=== PATIENT | male | born 1955 | race Caucasian/White ===

== ENCOUNTER 2019-11-01 18:58 | Emergency (ER) | payer OTHER, SELFPAY ==
[2019-11-01 19:13] VITALS: BP 149/84; PULSE 83; RESP 17; TEMP 37; O2SAT 96; BMI 28.5
--- NOTE | 2019-11-01 19:31 | XR_ITS ---
WS: [id number] XR hand LT min 3V* 09550 REASON FOR EXAM: dog bite FINDINGS: Degenerate changes of the first metacarpal carpal articulation. A small ossicle is seen adj acent to the distal aspects of the third phalanx this appears to be remote change is not needed. There is no definite fractures of the phalanges metacarpals or carpals. XR/XR hand LT min 3V* [id number] IMPRESSION: Degenerate changes of the first metacarpal carpal articulation.
--- NOTE | 2019-11-01 20:46 | W.ED.ANIMALB ---
HPI - Animal Bite General: Chief Complaint: Wound/Laceration Stated Complaint: dog bite Time Seen by Provider: 11/01/19 20:30 Source: patient Mode of arrival: ambulatory Limitations: no limitations History of Present Illness: HPI narrative: Patient is a 64-year-old male here for complaints of a dog bite to his left hand. Patient states he was pulling a tick off of his dog when the dog became irritated and bit his left hand. Dog is up-to-date on immunizations. Patient's tetanus is up-to-date. MD complaint: animal bite Onset (ago): hour(s) Animal: dog Description of animal: household pet, immunizations UTD and appeared well Mechanism: bite Location - Extremities: Left: hand Context: provoked Associated symptoms: Reports no associated symptoms Related Data: Patient tetanus UTD: Yes Review of Systems Skin/Breast: Reports: other (puncture gonzalez/bites to dorsum of L hand) Neuro: Denies: numbness in extremities, weakness in extremities or changes in sensation PFSH ED PFSH: Social History Smoking and tobacco status: current every day smoker Physical Exam Const: COMMON NORMALS: no apparent distress, average body habitus, oriented x3, no limitations, healthy appearing, alert and well nourished Extremity: OTHER: pt has two superficial bites/scratches to dorsum of L hand; he has one smaller 0.75 cm laceration/puncture tutu with some gapping so will go ahead and loosely close Neuro: COMMON NORMALS: oriented x3 SENSORIUM/ORIENTATION: Yes alert Procedures Laceration Laceration 1: Site: hand Side (If applicable): left Size (cm): 0.75 Description: stellate and flap Depth: simple, single layer Local Anesthetic: lidocaine 1% and with epi Amount of anesthesia used (mL): 0.5 Pre-repair: wound explored and irrigated extensively Skin layer closed with: nylon Size (cm): 5-0 Number of sutures: 2 Technique: simple, interrupted Course Vital Signs: Vital signs: Vital Signs Temperature 98.6 F 11/01/19 19:13 Pulse Rate 83 11/01/19 19:13 Respiratory Rate 17 11/01/19 19:13 Blood Pressure 149/84 11/01/19 19:13 Pulse Oximetry 96 11/01/19 19:13 Discharge Plan Discharge Patient Disposition: Home, Self-Care Clinical Impression: Dog bite of left hand Qualifiers: Encounter type: initial encounter Qualified Code(s): S61.452A - Open bite of left hand, initial encounter Condition: Stable Prescriptions: New Augmentin 875-125 mg tablet 1 tab PO Q12H 7 Days Qty: 14 RF: 0 No Action atorvastatin 10 mg Tablet 10 mg PO DAILY RF: 0 lisinopril 10 mg Tablet 10 mg PO DAILY RF: 0 Referrals: [facility] [Primary Care Provider] - Discharge Diet: Usual diet Discharge Activity: Resume usual activity Patient Instructions: Animal Bite (ED), Suture Care (ED) Activity Restrictions/Additional Instructions: Keep wounds clean with warm soap and water several times daily. Stitches can come out in 7 days. Begin antibiotics promptly. Return to the emergency department for worsening pain, swelling, redness, drainage, or any other concerns he may have. Coding Level of Care Code ED Product Development Specialist for Ric Tucker Exam Problem Focused
--- NOTE | 2019-11-01 21:09 | PC.NURSE ---
Introduced self to patient and initiated vital signs. Patient presents A&O x 4. NAD, ABCs intact, MAEW and agreeable to treatment. Respirations are even and unlabored. Pt states that the chief complaint for the ER visit today is due to a dog bite on left hand. Pt denies any vision disturbances or lightheadedness. Bed left in lowest position in semi-fowlers with side rails up.Reassured patient of needs and will continue to monitor.
[2019-11-01] MEDS: amoxicillin-clav 875-125 mg Tablet 1 TAB PO (21:10)
[2019-11-01 21:17] VITALS: BP 133/77; PULSE 86; RESP 16; TEMP 37; O2SAT 97
== END 2019-11-01 21:35 | disposition home or self-care (01) ==
PROVIDERS: Emergency Provider Physician Assistant
DX: S60.572A Other superficial bite of hand of left hand, initial encounter (principal); F17.200 Nicotine dependence, unspecified, uncomplicated; W54.0XXA Bitten by dog, initial encounter
CPT/HCPCS: 12001; 12345; 73130; 99281; 99283

== ENCOUNTER → 2019-11-15 08:28 | Outpatient (BNVA) | payer OTHER, SELFPAY | PROVIDERS: Referring Provider Nurse Practitioner; Visit Provider Urology | DX: R97.20 Elevated prostate specific antigen [PSA] (principal) | CPT/HCPCS: 81001 ==

== ENCOUNTER → 2020-05-28 14:39 | Outpatient (BNVA) | payer OTHER, SELFPAY | PROVIDERS: Visit Provider Urology | DX: R97.20 Elevated prostate specific antigen [PSA] (principal) | CPT/HCPCS: 81001; 84153 ==

== ENCOUNTER → 2020-10-15 10:44 | Outpatient (BNVA) | payer OTHER, SELFPAY | PROVIDERS: Visit Provider Surgery | DX: Z01.812 Encounter for preprocedural laboratory examination (principal) | CPT/HCPCS: 87635 ==

== ENCOUNTER 2020-10-22 09:08 | Day surgery (SDC) | payer OTHER, SELFPAY ==
[2020-10-21 11:21] VITALS: BMI 28.1
[2020-10-22 09:41] VITALS: BP 138/89; PULSE 68; RESP 18; TEMP 36.5; O2SAT 98
--- NOTE | 2020-10-22 09:46 | ANES.PREANE2 ---
Pre-Anesthetic Assessment Pre-Anesthetic Assessment: Height/Weight: Height 1.7 m Weight 81.647 kg Temp Pulse Resp BP Pulse Ox 97.7 F 68 18 138/89 98 10/22/20 09:41 10/22/20 09:41 10/22/20 09:41 10/22/20 09:41 10/22/20 09:41 Preop Diagnosis: screening colonoscopy Proposed Procedure: Operation Date: 10/22/20 10:30 Proposed Procedures p Colonoscopy 26676 z86.010(Not Applicable) - Darrell Gutierres MD Was Beta Ron taken within 24 hours: N/A Last intake: Intake Last Liquid Date 10/21/20 Last Solid Date 10/21/20 Last Solid Time 11:30 Social: Social History: No alcohol and No tobacco Exam: Pre-Anes Outpt Exam: alert, oriented x 3, clear to auscultation bilaterally and regular rate & rhythm Airway: Submandibular: WNL Cervical ROM: WNL MP: 2 CV/HEM: CV/HEM: HTN Anesthetic Plan: ASA status: 3 Anesthesia: MAC Risk of > 500 ml blood loss (7ml/kg in children): No PFSH Anesthesia PFSH: Medical History (Updated 10/11/20 @ 09:39 by Darrell Gutierres MD) HTN (hypertension) Hypercholesteremia Surgical History (Updated 10/11/20 @ 09:39 by Darrell Gutierres MD) H/O thumb surgery History of colonoscopy with polypectomy (2009) S/P shoulder surgery Family History Father , 80 Hypertension Hyperlipidemia Mother , 87 CAD (coronary artery disease) Social History Smoking and tobacco status: current every day smoker Alcohol intake: never Marital status: Current occupational status: retired History of recent travel: No Data Anesthesia Cardiac Studies: No Data to Display
[2020-10-22] MEDS: sodium chloride 0.9% 1,000 ML 30 ML IV (09:53)
--- NOTE | 2020-10-22 10:45 | W.PM.OPSUD ---
Surgery/Procedure H&P Update DATE OF PROCEDURE: October 22, 2020 DATE H&P PERFORMED: 10/11/20 H&P UPDATE INFORMATION: I have reviewed H&P completed within last 30 days, I have examined patient prior to procedure and No changes to prior documentation PREOP DIAGNOSIS: screening colonoscopy PLANNED PROCEDURE: Operation Date: 10/22/20 10:30 Proposed Procedures p Colonoscopy 30004 z86.010(Not Applicable) - Darrell Gutierres MD
[2020-10-22 11:09] VITALS: BP 128/78; PULSE 57; RESP 18; TEMP 36.2; O2SAT 97
[2020-10-22 11:19] VITALS: BP 128/92; PULSE 60; RESP 16; O2SAT 95
--- NOTE | 2020-10-22 12:07 | ANE.PACU2 ---
Inpatient post-anesthesia follow up: Airway intact: Yes Vital signs: Temperature 97.1 F Pulse Rate 60 Respiratory Rate 16 Blood Pressure 128/92 Pulse Oximetry 95 Oxygen Delivery Me thod Room Air Oxygen Flow Rate Fraction of Inspir ed Oxygen Hydration adequate: Yes Nausea and vomiting: No Pain level: 1 Mental status: Baseline
== END 2020-10-22 11:30 | disposition home or self-care (01) ==
PROVIDERS: Visit Provider Surgery
PROC: 0DJD8ZZ Inspection of Lower Intestinal Tract, Via Natural or Artificial Opening Endoscopic (ICD-10-PCS; CPT 45378; principal; 2020-10-22 10:30)
DX: K57.30 Diverticulosis of large intestine without perforation or abscess without bleeding (principal); D12.8 Benign neoplasm of rectum; I10 Essential (primary) hypertension; E78.00 Pure hypercholesterolemia, unspecified; Z79.82 Long term (current) use of aspirin; F17.210 Nicotine dependence, cigarettes, uncomplicated
CPT/HCPCS: 45378; 88305; J7030

== ENCOUNTER → 2020-12-19 08:35 | Outpatient (BNVA) | payer OTHER, SELFPAY | PROVIDERS: PCP Nurse Practitioner; Visit Provider Urology | DX: R97.20 Elevated prostate specific antigen [PSA] (principal) | CPT/HCPCS: 81003; 84153 ==

== ENCOUNTER 2021-01-08 08:29 | Emergency (ER) | payer OTHER, MEDICARE, SELFPAY ==
[2021-01-08 08:38] VITALS: BMI 27.9
--- NOTE | 2021-01-08 08:57 | ECG_ITS ---
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 Measurements Intervals [place] Rate: 63 P: 32 TN: 164 QRS: 0 QRSD: 89 T: 30 QT: 400 QTc: 410 Interpretive Statements SINUS RHYTHM WITH OCCASIONAL SUPRAVENTRICULAR PREMATURE COMPLEXES LOW QRS VOLTAGE IN PRECORDIAL LEADS [QRS DEFLECTION < 1.0 mV IN CHEST LEADS] No previous ECG available for comparison Electronically Signed On 01-08-2021 18:22:22 CDT by Audra Cope M.D. [id number] f
--- NOTE | 2021-01-08 08:57 | XR_ITS ---
WS: [id number] PORTABLE CHEST HISTORY: Acute onset chest pain. COMPARISON: None available. Lungs are clear and well expanded. No pleural effusion or pneumothorax. Cardiac size: Normal. Mediastinum/Aorta: Mild ectasia aorta. No widening. No osseous abnormality seen. XR/XR chest 1V portable 10231 IMPRESSION: Mildly ectatic thoracic aorta. Otherwise negative.
--- NOTE | 2021-01-08 09:23 | W.ED.CHESTPA ---
HPI - Chest Pain General: Chief Complaint: Chest Pain Stated Complaint: LIGHTHEADED, RIB PAIN, IRREGULAR HEARTBEAT Time Seen by Provider: 01/08/21 08:42 History of Present Illness: HPI narrative: 65-year-old male comes in stating he felt lightheaded, fuzzy and had chest pain. He appears to be in no acute distress. He points to his left lower chest as the location of the pain. He states this occurred approxi-1 hour ago. He states it did take his breath away. He has not had previous problems like this. He states the pain in his chest was more like an ache. He denies any history of heart disease, previous [place] or previous CVA. He denies any ear pain, runny nose or sore throat. He denies any shortness of breath or cough. He denies any fever or chills. He states he did feel somewhat nauseous with the lightheadedness. He denies any blurry or double vision. He denies any abdominal or flank pain. He denies any pain or burning with urination. No diarrhea or constipation. MD complaint: chest pain Onset (ago): hour(s) (1 hour) Prior episodes: No Onset: during rest Pain location: left chest Pain radiation: none Severity: mild Quality: aching Relieving factors: nothing Exacerbating factors: nothing Associated symptoms: Reports no associated symptoms; Deny abdominal pain, dyspnea, nausea, palpitations, syncope or vomiting Treatment prior to arrival: none Review of Systems General: Reports: 10 or more systems reviewed and unremarkable except in HPI and below ENMT: Denies: throat pain, odynophagia, ear or mastoid pain or nasal congestion Card: Reports: chest pain (Left lower chest) and lightheadedness; Denies: palpitations, irregular heart rhythm, edema, swelling of feet/ankles, syncope, pre-syncope, dyspnea on exertion, orthopnea or leg pain with exertion Resp: Denies: dyspnea, productive cough, non-productive cough or wheezing GI: Denies: abdominal pain, nausea or vomiting : Reports: dysuria; Denies: flank pain Neuro: Reports: other (Patient states he felt lightheaded and fuzzy in his head.) PFS ED PFSH: Medical History HTN (hypertension) Hypercholesteremia Surgical History H/O thumb surgery History of colonoscopy with polypectomy (10/22/20) 2009 S/P shoulder surgery Family History Father , 80 Hypertension Hyperlipidemia Mother , 87 CAD (coronary artery disease) Social History Smoking and tobacco status: current every day smoker Alcohol intake: never Marital status: Current occupational status: retired History of recent travel: No Physical Exam Narrative: EXAM NARRATIVE: 65-year-old male comes in with lightheadedness and chest pain. Const: COMMON NORMALS: patient oriented x3 and alert GENERAL APPEARANCE: well kempt; not lethargic ORIENTATION/CONSCIOUSNESS: Yes oriented to person, Yes oriented to place and Yes oriented to time; not lethargic HENMT: COMMON NORMALS: normocephalic, atraumatic and moist oral mucous membranes HEAD & SCALP: normocephalic and atraumatic Eye: COMMON NORMALS: Equal, round and reactive pupils present, EOMs intact bilaterally, conjunctivae normal and no scleral icterus GENERAL EYE: appearance normal, both eyes and all related structures and normal light reflex CONJUNCTIVA: Yes conjunctivae normal PUPIL: Yes Equal, round and reactive pupils present DIRECT OPHTHALMOSCOPY: Yes normal light reflex Neck/C-Spine: COMMON NORMALS: full ROM, no lymphadenopathy, supple, no meningeal signs and no JVD GENERAL: Yes normal visual inspection, Yes trachea midline, No anterior neck swelling and No lymphadenopathy Chest: COMMONS NORMALS: normal inspection of the chest and normal palpation of entire chest wall Resp: COMMON NORMALS: normal respiratory effort, No retractions, No use of accessory muscles and clear to auscultation bilaterally EFFORT & INSPECTION: Yes able to speak in complete sentences, Yes symmetric chest movement, No labored, No grunting, No stridor, No Actively coughing, No retractions and No uses accessory muscles AUSCULTATION: clear to auscultation bilaterally, no crackles, no rales, no rhonchi and no wheezes Cardio: COMMON NORMALS: no JVD, regular rate, regular rhythm, No gallops present (Cardio), No clicks present (Cardio), No murmurs present (Cardio), No rub (Cardio) and Peripheral pulses 2+ throughout RATE: regular rate RHYTHM: regular rhythm PERIPHERAL PULSES: Peripheral pulses 2+ throughout GI: COMMON NORMALS: Normal to inspection, nondistended, normoactive bowel sounds present, Soft to palpation, non-tender, No hepatosplenomegaly present, no masses and no bruits PALPATION: Yes Soft to palpation and Yes No hepatosplenomegaly present : COMMON NORMALS: Yes no CVA tenderness BLADDER/KIDNEY EXAM: Yes no CVA tenderness Back/Pelvis: COMMON NORMALS: no CVA tenderness and thoracic and lumbar spine normal to inspection Extremity: COMMON NORMALS: normal to inspection, full ROM, capillary refill normal, no joint enlargement, no clubbing, cyanosis or edema, no calf tenderness and no pedal edema Neuro: COMMON NORMALS: patient oriented x3, CN's II-XII intact bilaterally, moves all extremities, no focal motor deficits and no sensory deficits noted SENSORIUM/ORIENTATION: Yes alert, Yes oriented to person, Yes oriented to place, Yes oriented to time, No lethargic, No somnolent, No obtunded and No stuporous MENINGEAL SIGNS: Yes no meningeal signs Psych: COMMON NORMALS: mental status grossly normal, Normal thought process present, cooperative, normal affect, speech normal and activity/motor behavior normal APPEARANCE: Yes grossly normal and Yes well kempt ATTITUDE: Yes calm and Yes engaged ACTIVITY/MOTOR BEHAVIOR: Yes appropriate eye contact SPEECH: Yes normal speech THOUGHT PROCESS: Normal thought process present MDM - Chest Pain Lab Data: Labs: Lab Results 01/08/21 01/08/21 01/08/21 Range/Units 09:15 09:15 09:15 WBC 6.1 (4.0-10.0) 10^3/ uL RBC 4.88 (4.1-5.3) 10^6/u L Hgb 14.6 (11.7-16.6) g/dL Hct 43.9 (42.0-52.0) % MCV 90.0 (80-94) fL MCH 29.9 (28.0-34.0) pg MCHC 33.3 (30.0-36.0) g/dL RDW 12.8 (12.1-15.1) % Plt Count 230 (130-400) 10^3/c mm MPV 11.9 H (7.4-10.4) fL Neut % (Auto) 57.9 % Lymph % (Auto) 31.4 % [place] % (Auto) 7.6 % Eos % (Auto) 2.1 % Baso % (Auto) 0.7 % Neut # (Auto) 3.51 (1.8-7.7) 10^3/u L Lymph # (Auto) 1.9 (0.8-4.8) 10^3/u L [place] # (Auto) 0.5 (0.2-0.9) 10^3/u L Eos # (Auto) 0.1 (0.0-0.8) 10^3/u L Baso # (Auto) 0.0 (0.0-0.1) 10^3/u L Nucleated RBC % (a uto) 0 % Nucleated RBCs # 0.0 /100WBC Sodium 136 (136-145) mmol/L Potassium 4.6 (3.5-5.1) mmol/L Chloride 101 (98-107) mmol/L Carbon Dioxide 25 (22-29) mmol/L Anion Gap 14.6 (5-19) BUN 10 (8-23) mg/dL Creatinine 0.7 (0.7-1.2) mg/dL GFR Calculation 112.5 (90-130) mL/min Glucose 107 (65-115) mg/dL Calculated Osmolal ity 282 L (285-295) mOsm/k g Calcium 9.3 (8.5-10.5) mg/dL Total Bilirubin 0.3 (0.15-1.2) mg/dL AST 17 (0-40) U/L ALT 16 (0-41) U/L Alkaline Phosphata se 93 (40-130) IU/L Troponin T Baselin e 8 (0-15) ng/L Troponin T 120 Min nikolski (0-15) ng/L Delta Troponin T (0-10) ABS# NT-Pro-B Natriuret Pep 56 (0-125) pg/mL Total Protein 7.0 (6.6-8.7) g/dL Albumin 4.6 (3.5-5.2) g/dL Globulin 2.4 (1.3-4.6) g/dL 01/08/21 Range/Units 11:41 WBC (4.0-10.0) 10^3/ uL RBC (4.1-5.3) 10^6/u L Hgb (11.7-16.6) g/dL Hct (42.0-52.0) % MCV (80-94) fL MCH (28.0-34.0) pg MCHC (30.0-36.0) g/dL RDW (12.1-15.1) % Plt Count (130-400) 10^3/c mm MPV (7.4-10.4) fL Neut % (Auto) % Lymph % (Auto) % [place] % (Auto) % Eos % (Auto) % Baso % (Auto) % Neut # (Auto) (1.8-7.7) 10^3/u L Lymph # (Auto) (0.8-4.8) 10^3/u L [place] # (Auto) (0.2-0.9) 10^3/u L Eos # (Auto) (0.0-0.8) 10^3/u L Baso # (Auto) (0.0-0.1) 10^3/u L Nucleated RBC % (a uto) % Nucleated RBCs # /100WBC Sodium (136-145) mmol/L Potassium (3.5-5.1) mmol/L Chloride (98-107) mmol/L Carbon Dioxide (22-29) mmol/L Anion Gap (5-19) BUN (8-23) mg/dL Creatinine (0.7-1.2) mg/dL GFR Calculation (90-130) mL/min Glucose (65-115) mg/dL Calculated Osmolal ity (285-295) mOsm/k g Calcium (8.5-10.5) mg/dL Total Bilirubin (0.15-1.2) mg/dL AST (0-40) U/L ALT (0-41) U/L Alkaline Phosphata se (40-130) IU/L Troponin T Baselin e (0-15) ng/L Troponin T 120 Min nikolski 6.00 (0-15) ng/L Delta Troponin T -2.00 L (0-10) ABS# NT-Pro-B Natriuret Pep (0-125) pg/mL Total Protein (6.6-8.7) g/dL Albumin (3.5-5.2) g/dL Globulin (1.3-4.6) g/dL Discharge Plan Discharge Patient Disposition: Home Clinical Impression: Atypical chest pain, Light-headed, Bradycardia Condition: Stable Prescriptions: No Action aspirin 81 mg tablet,delayed release (DR/EC) 81 mg PO DAILY RF: 0 atorvastatin 10 mg Tablet 10 mg PO QPM RF: 0 lisinopril 10 mg Tablet 10 mg PO DAILY RF: 0 saw palmetto 80 mg Capsule 320 mg PO DAILY RF: 0 ascorbic acid (vitamin C) [Vitamin C] 250 mg Tablet 250 mg PO DAILY RF: 0 zinc 50 mg Capsule 50 mg PO DAILY RF: 0 Discharge Orders: Discharge ED (Routine); Ordered 01/08/21 Ordered By: Wilder Vanegas Referrals: Araceli Garber FNP [Primary Care Provider] - Discharge Diet: Advance as tolerated Discharge Activity: Increase activity as tolerated Patient Instructions: Opioid Safety Activity Restrictions/Additional Instructions: Continue current medications. Follow-up with your primary care provider. Please wear Vince/support hose. Follow-up with cardiology as directed by your primary care provider. Coding Level of Care Code ED Prenatal Nurse for Giovannig Fwd Exam Comprehensive
[2021-01-08 09:27] LABS: Basophils % 0.7 %; Eosinophils # 0.1 10^3/uL (0.0-0.8); Eosinophils % 2.1 %; Hematocrit 43.9 % (42.0-52.0); Hemoglobin 14.6 g/dL (11.7-16.6); Lymphocytes # 1.9 10^3/uL (0.8-4.8); Lymphocytes % 31.4 %; Mean Corpuscular HGB Conc 33.3 g/dL (30.0-36.0); Mean Corpuscular Hemoglobin 29.9 pg (28.0-34.0); Mean Platelet Volume 11.9 fL (7.4-10.4); Monocytes # 0.5 10^3/uL (0.2-0.9); Monocytes % 7.6 %; Neutrophils # 3.51 10^3/uL (1.8-7.7); Neutrophils % 57.9 %; Nucleated Red Blood Cells % 0 %; Platelet Count 230 10^3/cmm (130-400); Red Blood Count 4.88 10^6/uL (4.1-5.3); Red Cell Distribution Width 12.8 % (12.1-15.1); White Blood Count 6.1 10^3/uL (4.0-10.0)
[2021-01-08 09:46] LABS: Troponin(5th) Baseline 8 ng/L (0-15)
[2021-01-08 09:51] LABS: Alanine Aminotransferase 16 U/L (0-41); Albumin Level 4.6 g/dL (3.5-5.2); Alkaline Phosphatase 93 IU/L (40-130); Anion Gap 14.6 (5-19); Aspartate Amino Transferase 17 U/L (0-40); Blood Urea Nitrogen 10 mg/dL (8-23); Calcium 9.3 mg/dL (8.5-10.5); Carbon Dioxide 25 mmol/L (22-29); Chloride 101 mmol/L (98-107); Globulin 2.4 g/dL (1.3-4.6); Glomerular Filtration Rate 112.5 mL/min (90-130); Glucose 107 mg/dL (65-115); NT Pro B Type Natriuretic Pept 56 pg/mL (0-125); Osmolality Calculated 282 mOsm/kg (285-295); Potassium 4.6 mmol/L (3.5-5.1); Sodium 136 mmol/L (136-145); Total Bilirubin 0.3 mg/dL (0.15-1.2)
--- NOTE | 2021-01-08 10:57 | ECG_ITS ---
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 Measurements Intervals [place] Rate: 62 P: 21 [place]: 167 QRS: -4 QRSD: 87 T: 24 QT: 420 QTc: 428 Interpretive Statements SINUS RHYTHM WITH OCCASIONAL ECTOPIC PREMATURE COMPLEXES Compared to ECG 01/08/2021 08:48:20 No significant changes Electronically Signed On 01-08-2021 18:26:49 CDT by Audra Cope M.D. [id number]
[2021-01-08 12:45] VITALS: BP 139/74; PULSE 70; RESP 18; O2SAT 96
== END 2021-01-08 12:46 | disposition home or self-care (01) ==
PROVIDERS: Emergency Provider Emergency Medicine; PCP Nurse Practitioner
DX: R07.89 Other chest pain (principal); R42 Dizziness and giddiness; R00.1 Bradycardia, unspecified; Z79.82 Long term (current) use of aspirin; I10 Essential (primary) hypertension; F17.210 Nicotine dependence, cigarettes, uncomplicated
CPT/HCPCS: 71045; 80053; 83880; 84484; 85025; 93005; 99283

== ENCOUNTER → 2021-06-02 10:57 | Outpatient (BNVA) | payer OTHER, MEDICARE, SELFPAY | PROVIDERS: PCP Nurse Practitioner; Referring Provider Nurse Practitioner; Visit Provider Specialist | DX: M25.511 Pain in right shoulder (principal) | CPT/HCPCS: 73030 ==

== ENCOUNTER 2021-06-06 09:30 | Outpatient (RCR) | payer OTHER, SELFPAY | END 2021-06-13 16:00 | disposition home or self-care (01) | LOC: SPT 09:30 | PROVIDERS: PCP Nurse Practitioner; Visit Provider Specialist | DX: M25.511 Pain in right shoulder (principal) | CPT/HCPCS: 97110; 97162; 97164 ==

== ENCOUNTER → 2021-06-17 08:48 | Outpatient (BNVA) | payer OTHER, SELFPAY | PROVIDERS: PCP Nurse Practitioner; Visit Provider Urology | DX: R97.20 Elevated prostate specific antigen [PSA] (principal) | CPT/HCPCS: 81003 ==

== ENCOUNTER → 2021-12-16 09:19 | Outpatient (BNVA) | payer OTHER, SELFPAY | PROVIDERS: PCP Nurse Practitioner; Visit Provider Urology | DX: R97.20 Elevated prostate specific antigen [PSA] (principal) | CPT/HCPCS: 81003; 84153 ==

== ENCOUNTER 2022-06-27 13:47 | Emergency (ER) | payer OTHER, SELFPAY ==
[2022-06-27 14:00] VITALS: BP 161/90; PULSE 73; RESP 16; TEMP 36.8; O2SAT 97; BMI 28.7
--- NOTE | 2022-06-27 14:52 | W.ED.ANIMALB ---
HPI - Animal Bite General: Chief Complaint: Animal Bite Stated Complaint: Tick Bite Time Seen by Provider: 06/27/22 14:42 History of Present Illness: Patient is a 66-year-old male comes to the ED with a tick bite. Tick bite was found on his left lower quadrant of his abdomen. He removed the whole tick about an hour before arriving to the ED. Has some redness and tenderness around tick bite area. Denies any other symptoms. Denies fever, chills, body aches, muscle pains, nausea/vomiting, shortness of breath or chest pain. Associated symptoms: Deny chills, fever(s) or headache(s) Review of Systems Const: Denies: fever(s), chills or fatigue Eyes: Denies: change in vision or eye discomfort ENMT: Denies: throat pain, odynophagia, nasal discharge or nasal congestion Card: Denies: chest pain, palpitations, edema, swelling of feet/ankles, dyspnea on exertion or orthopnea Resp: Denies: dyspnea, productive cough or non-productive cough GI: Denies: abdominal pain, nausea, vomiting, diarrhea, constipation or hematochezia : Denies: flank pain, difficulty urinating, dysuria or hematuria Musc: Denies: neck pain, back pain or extremity swelling Skin/Breast: Reports: new lesions (Tick bite on abdomen); Denies: rash Neuro: Denies: headache(s), numbness in extremities or weakness in extremities [facility] ED PFSH: Medical History History of nonmelanoma skin cancer HTN (hypertension) Hypercholesteremia Surgical History H/O thumb surgery History of colonoscopy with polypectomy (10/22/20) 2009 S/P shoulder surgery Family History Father , 80 Hypertension Hyperlipidemia Mother , 87 CAD (coronary artery disease) Social History Smoking and tobacco status: current every day smoker Alcohol intake: never Marital status: Current occupational status: retired History of recent travel: No Physical Exam Const: COMMON NORMALS: no acute distress, patient oriented x3, healthy appearing and alert GENERAL APPEARANCE: cooperative and comfortable HENMT: COMMON NORMALS: normocephalic HEAD & SCALP: normocephalic MOUTH: Normal oral and palatal mucosa present THROAT: posterior oropharynx normal and uvula midline Neck/C-Spine: COMMON NORMALS: supple GENERAL: Yes normal visual inspection Resp: COMMON NORMALS: normal respiratory effort, No retractions, No use of accessory muscles and clear to auscultation bilaterally AUSCULTATION: clear to auscultation bilaterally Cardio: COMMON NORMALS: regular rate, regular rhythm, S1 normal heart sound present, S2 normal heart sound present, No gallops present (Cardio), No clicks present (Cardio), No murmurs present (Cardio) and Peripheral pulses 2+ throughout RATE: regular rate RHYTHM: regular rhythm HEART SOUNDS: S1 normal heart sound present and S2 normal heart sound present PERIPHERAL PULSES: Peripheral pulses 2+ throughout GI: COMMON NORMALS: Normal to inspection, nondistended, normoactive bowel sounds present, Soft to palpation, non-tender and no masses PALPATION: Yes Soft to palpation : COMMON NORMALS: Yes no CVA tenderness BLADDER/KIDNEY EXAM: Yes no CVA tenderness Back/Pelvis: COMMON NORMALS: no CVA tenderness Neuro: COMMON NORMALS: patient oriented x3 SENSORIUM/ORIENTATION: Yes alert GAIT: Yes Normal gait present Skin: NARRATIVE SKIN EXAM: Tick bite on left lower quadrant of abdomen. Surrounding erythema and tenderness. No erythema migrans rash noted. GENERAL SKIN EXAM: dry skin Course Vital Signs: Vital signs: Vital Signs Temperature 98.0 F 06/27/22 15:17 Pulse Rate 66 06/27/22 15:17 Respiratory Rate 15 06/27/22 15:17 Blood Pressure 146/91 06/27/22 15:17 Pulse Oximetry 98 06/27/22 15:17 Oxygen Delivery Me thod 06/27/22 14:00 MDM - Animal Bite Medical Decision Making Patient is a 66-year-old male comes to the ED with a tick bite on left lower quadrant of abdomen. Denies any other symptoms. he has some surrounding erythema and tenderness but no erythema migrans rash noted. Vitals are stable. Tick lab panel is pending. He was diagnosed with tick bite of abdomen and discharged home on doxycycline. Told to follow-up with his PCP within the next week for reevaluation. Patient understood and agreed with plan. Discharge Plan Discharge Patient Disposition: Home Clinical Impression: Tick bite of abdomen Qualifiers: Encounter type: initial encounter Qualified Code(s): S30.861A - Insect bite (nonvenomous) of abdominal wall, initial encounter Condition: Stable Prescriptions: New doxycycline hyclate 100 mg capsule 100 mg PO BID 10 Days Qty: 20 0RF No Action atorvastatin 10 mg Tablet 10 mg PO QPM lisinopril 10 mg Tablet 10 mg PO DAILY saw palmetto 80 mg Capsule 320 mg PO DAILY ascorbic acid (vitamin C) [Vitamin C] 250 mg Tablet 250 mg PO DAILY Discharge Orders: Discharge ED (Routine); Ordered 06/27/22 Ordered By: Santos Rowland Referrals: Araceli Garber FNP [Primary Care Provider] - Discharge Diet: Regular Discharge Activity: Increase activity as tolerated Patient Instructions: Tick Bite (ED) Activity Restrictions/Additional Instructions: Follow-up with medical provider as directed in the next 7 to 10 days for reevaluation. Take medications as prescribed. Tick panel is pending and results should be back within the next couple days. You can [facility] in the next couple days to find out tick panel lab results. Return to the ER or your medical provider if condition worsens. Please read and understand discharge instructions. Thank you for choosing [facility] for your healthcare needs today. Please realize this is an emergency room and that we are providing you with a medical screening exam and this may not be complete and all inclusive of all the testing and or work up that you may need to determine your ailment or severity of your illness. It is very important that you follow up as instructed or that you return to the Emergency Department should you have concerns or if your condition changes or worsens in any way. Coding Level of Care Code ED Psych Sales Specialist for Ric Tucker Exam Comprehensive
[2022-06-27 15:17] VITALS: BP 146/91; PULSE 66; RESP 15; TEMP 36.7; O2SAT 98
[2022-06-29 13:52] LABS: Lyme AB Screen <0.90 index
[2022-07-02 17:02] LABS: E. Chaffeensis AB IGG <1:64; E. Chaffeensis AB IGM <1:20
[2022-07-03 16:16] LABS: RMSF IGG DETECTED; RMSF IGM NOT DETECTED
== END 2022-06-27 15:19 | disposition home or self-care (01) ==
PROVIDERS: Emergency Provider Physician Assistant; PCP Nurse Practitioner
DX: S30.861A Insect bite (nonvenomous) of abdominal wall, initial encounter (principal); W57.XXXA Bitten or stung by nonvenomous insect and other nonvenomous arthropods, initial encounter; I10 Essential (primary) hypertension; F17.210 Nicotine dependence, cigarettes, uncomplicated
CPT/HCPCS: 36415; 86618; 86666; 86757; 99283

== ENCOUNTER 2022-06-30 07:38 | Outpatient (CLI) | payer OTHER, MEDICARE, SELFPAY ==
[2022-06-30 08:42] LABS: Prostate Specific AG Urology 4.12 ng/mL (0-4)
== END 2022-06-30 07:39 | disposition home or self-care (01) ==
LOC: LAB 07:44
PROVIDERS: PCP Nurse Practitioner; Visit Provider Urology
DX: R97.20 Elevated prostate specific antigen [PSA] (principal)
CPT/HCPCS: 36415; 81003; 84153

== ENCOUNTER → 2023-01-28 08:23 | Outpatient (BNVA) | payer OTHER, SELFPAY | PROVIDERS: PCP Nurse Practitioner; Visit Provider Nurse Practitioner Family | DX: L57.8 Other skin changes due to chronic exposure to nonionizing radiation (principal); L57.0 Actinic keratosis; L81.7 Pigmented purpuric dermatosis; L85.3 Xerosis cutis; Z85.828 Personal history of other malignant neoplasm of skin; Z72.0 Tobacco use | CPT/HCPCS: 17000; 17003; 99213 ==

== ENCOUNTER → 2023-03-16 11:09 | Outpatient (BNVA) | payer OTHER, SELFPAY | PROVIDERS: PCP Nurse Practitioner; Visit Provider Internal Medicine Pulmonary Disease | DX: R91.8 Other nonspecific abnormal finding of lung field (principal); J44.9 Chronic obstructive pulmonary disease, unspecified; F17.210 Nicotine dependence, cigarettes, uncomplicated | CPT/HCPCS: 99204 ==

== ENCOUNTER 2023-03-30 06:54 | Outpatient (CLI) | payer OTHER, SELFPAY ==
--- NOTE | 2023-03-30 07:18 | CT_ITS ---
WS: [id number] CT chest wo con [id number] HISTORY: cancer screening lung nodule TECHNIQUE: Axial imaging performed through the thorax. Coronal and sagittal reformats are submitted. All CT scans at [facility] use at least one of these dose optimization techniques: automated exposure control; mA and/or kV adjustment per patient size (includes targeted exams where dose is mat ched to clinical indication); or iterative reconstruction. CONTRAST: None DLP: 312.23 mGy.cm COMPARISON: 05/08/2022, 11/06/2022 Lungs and central airway: Hyperexpanded lungs. There are 2 nodules are reidentified in the RIGHT thor ax. Both these nodules are along the fissure which are typically benign. Largest nodule is 3.5 mm. No increase in size since 05/08/2022. Pleura: Normal. No pleural effusion. Heart and pericardium: Normal size heart with no pericardial effusion. Moderate coronary artery ather osclerosis. Mediastinum and raissa: No mediastinum or hilar adenopathy. Vessels: Mild atherosclerosis aorta. Normal size pulmonary artery. Chest wall and lower neck: No soft tissue masses. Upper abdomen: Moderate-sized hiatal hernia. Splenic granulomata. Osseous structures: Moderate degenerative spondylitic changes thoracic spine CT/CT chest wo con [id number] IMPRESSION: 1. Small right-sided perifissural nodule's. These are typically benign. No inc rease in size since 05/08/2022. Recommend return to annual screening lung CT. 2. Chronic emphysema. 3. Moderate coronary artery atherosclerotic disease.
== END 2023-03-30 06:55 | disposition home or self-care (01) ==
PROVIDERS: PCP Nurse Practitioner; Visit Provider Internal Medicine Pulmonary Disease
DX: R91.1 Solitary pulmonary nodule (principal); J43.8 Other emphysema; I25.10 Atherosclerotic heart disease of native coronary artery without angina pectoris
CPT/HCPCS: 71250

== ENCOUNTER 2023-05-17 08:30 | Outpatient (CLI) | payer OTHER, SELFPAY ==
--- NOTE | 2023-05-17 08:39 | USCV_ITS ---
Lewis Hernandez Age: 67 Gender: M : 1955 Exam Date: 05/17/2023 08:49 Ordering Phys: Araceli Garber Technologist: MARSHA Exam Location: [facility] [place] Indication: AAA Screening HISTORY: Diameter (cm) AP x Transverse x Length Velocity (cm/s) Waveform Prox Aorta: 1.96 x 2.07 x 52.50 Triphasic Mid Aorta: 1.52 x 1.69 x 62.70 Triphasic Distal Aorta: 1.60 x 1.87 x 54.90 Triphasic Right Iliac Prox: 0.79 x 1.20 x 68.60 Triphasic Left Iliac Prox: 0.77 x 1.02 x 83.00 Triphasic Stent Prox Landing x x Aneurysmal Sac Max x x Lt Lat Sac Dim Rt Lat Sac Dim Stent Dist Landing x x Right Iliac Stent x x Left Iliac Stent x x Right Renal Art Left Renal Art FINDINGS: CONCLUSIONS No evidence of abdominal aortic or bilateral iliac aneurysm. Mild aortic atheromatous disease Emmanuel Crocker MD (Electronically Signed) Final Date: 17 May 2023 15:00 S
== END 2023-05-17 08:31 | disposition home or self-care (01) ==
PROVIDERS: PCP Nurse Practitioner; Visit Provider Nurse Practitioner
DX: Z13.6 Encounter for screening for cardiovascular disorders (principal); I70.0 Atherosclerosis of aorta
CPT/HCPCS: 76706

== ENCOUNTER → 2023-06-24 10:53 | Outpatient (BNVA) | payer OTHER, SELFPAY | PROVIDERS: PCP Nurse Practitioner; Referring Provider Nurse Practitioner; Visit Provider Dermatology | DX: Z08 Encounter for follow-up examination after completed treatment for malignant neoplasm (principal); Z85.828 Personal history of other malignant neoplasm of skin; L82.1 Other seborrheic keratosis; L57.0 Actinic keratosis; L73.8 Other specified follicular disorders | CPT/HCPCS: 17000; 99213 ==

== ENCOUNTER → 2023-09-02 08:43 | Outpatient (BNVA) | payer OTHER, SELFPAY | PROVIDERS: PCP Nurse Practitioner; Visit Provider Internal Medicine Pulmonary Disease | DX: J44.9 Chronic obstructive pulmonary disease, unspecified (principal); F17.210 Nicotine dependence, cigarettes, uncomplicated; R91.8 Other nonspecific abnormal finding of lung field; R06.02 Shortness of breath | CPT/HCPCS: 99214 ==

== ENCOUNTER 2023-09-28 07:48 | Outpatient (CLI) | payer OTHER, SELFPAY ==
[2023-09-28 08:19] VITALS: PULSE 76; RESP 18; O2SAT 97
[2023-09-28] MEDS: albuterol 2.5 mg/3 mL Neb INHALATION (08:19)
[2023-09-28 08:24] VITALS: PULSE 82
== END 2023-09-28 07:49 | disposition home or self-care (01) ==
LOC: RT 07:49
PROVIDERS: PCP Nurse Practitioner; Visit Provider Internal Medicine Pulmonary Disease
DX: J44.9 Chronic obstructive pulmonary disease, unspecified (principal); Z72.0 Tobacco use; R94.2 Abnormal results of pulmonary function studies
CPT/HCPCS: 94060; 94618; 94726; 94729; J7613

== ENCOUNTER → 2023-12-02 08:22 | Outpatient (BNVA) | payer OTHER, SELFPAY | PROVIDERS: PCP Nurse Practitioner; Visit Provider Internal Medicine Pulmonary Disease | DX: J44.9 Chronic obstructive pulmonary disease, unspecified (principal); R91.8 Other nonspecific abnormal finding of lung field; F17.210 Nicotine dependence, cigarettes, uncomplicated | CPT/HCPCS: 99214 ==

== ENCOUNTER → 2024-01-21 09:53 | Outpatient (BNVA) | payer OTHER, SELFPAY | PROVIDERS: PCP Nurse Practitioner; Visit Provider Nurse Practitioner Family | DX: L57.0 Actinic keratosis (principal); L82.0 Inflamed seborrheic keratosis; L60.8 Other nail disorders; D22.5 Melanocytic nevi of trunk; L81.4 Other melanin hyperpigmentation; Z85.828 Personal history of other malignant neoplasm of skin | CPT/HCPCS: 17000; 17110; 99213 ==

== ENCOUNTER 2024-07-04 08:34 | Outpatient (CLI) | payer MEDICARE, OTHER, SELFPAY | END 2024-07-04 08:35 | disposition home or self-care (01) | LOC: LAB 08:36 | PROVIDERS: PCP Nurse Practitioner; Visit Provider Nurse Practitioner Family | DX: R97.20 Elevated prostate specific antigen [PSA] (principal) | CPT/HCPCS: 84153 ==

== ENCOUNTER 2024-09-17 12:55 | Emergency (ER) | payer OTHER, SELFPAY ==
--- NOTE | 2024-09-17 12:57 | XRR_ITS ---
PROCEDURE INFORMATION: Exam: XR Chest Exam date and time: 09/17/2024 1:17 PM Age: 69 years old Clinical indication: Chest pressure; Patient HX: Chest pain TECHNIQUE: Imaging protocol: Radiologic exam of the chest. Views: 1 view. COMPARISON: CT chest con [id number] 03/30/2023 7:25 AM FINDINGS: Lungs: No focal lung consolidation. Pleural spaces: No pleural effusion. No pneumothorax. Heart/Mediastinum: No cardiomegaly. Bones/joints: No acute bony abnormality. XR/XR chest 1V portable [id number] IMPRESSION: No focal lung consolidation.
--- NOTE | 2024-09-17 12:58 | ECG_ITS ---
[facility] Date: 2024-09-17 Pat Name: Lewis Hernandez Department: Room: Gender: Male Media Aid: : 1955 Requested By: Matthew Jensen Order Number: [id number] Reading MD: GREGORIA PAZ Measurements Intervals [place] Rate: 63 P: 47 DC: 158 QRS: 18 QRSD: 88 T: 55 QT: 381 QTc: 392 Interpretive Statements SINUS RHYTHM Compared to ECG 01/08/2021 11:30:52 No significant changes Electronically Signed On 09-18-2024 23:13:41 SOCIOLOGY TEACHER by GREGORIA PAZ [id number]
[2024-09-17 13:04] VITALS: BP 142/75; PULSE 85; RESP 16; TEMP 36.7; O2SAT 98
--- NOTE | 2024-09-17 13:12 | ED_ITS ---
HPI - Chest Pain 2 General: Chief Complaint: Chest Pain Stated Complaint: chest pain Time Seen by Provider: 09/17/24 13:08 Source: patient Mode of arrival: ambulatory Limitations: no limitations History of Present Illness: 69-year-old male states he was watching TV roughly an hour ago and started having some chest pain states it has been a mild pain he denies any nausea denies any shortness of breath he denies any worse improving factors. States he is currently pain-free at this time. He denies any abdominal pain denies any cough or fever Associated symptoms: Deny abdominal pain, dyspnea, fever(s), nausea or vomiting Related Data Home Medications Medication Instructions Recorded Confirmed multivitamin 1 tab PO DAILY 03/16/23 09/17/24 albuterol sulfate 90 mcg/actuation 2 inh inhalation Q8H PRN shortness 09/17/24 09/17/24 aerosol inhaler of breath or wheezing atorvastatin 20 mg tablet 20 mg PO DAILY 09/17/24 09/17/24 lisinopril 20 mg tablet 20 mg PO DAILY 09/17/24 09/17/24 Previous Rx's Medication Instructions Recorded tiotropium 2.5 mcg-olodaterol 2.5 2 puff inhalation DAILY #4 grams 12/02/23 mcg/actuation mist for inhalation Allergies Allergy/AdvReac Type Severity Reaction Status Date / Time oxycodone [From Percocet] Allergy ALGY-Rash Verified 09/17/24 13:06 Review of Systems 2 Const: Denies: fever(s), chills, body aches or change in appetite ENMT: Denies: throat pain or dental pain Card: Reports: chest pain Resp: Denies: dyspnea GI: Denies: abdominal pain, nausea, vomiting or diarrhea Musc: Denies: neck pain or back pain Skin/Breast: Denies: rash Neuro: Denies: headache(s) Esteban/Lymph: Denies: easy bruising PFSH ED 2 PFSH: Medical History History of nonmelanoma skin cancer Hypercholesteremia HTN (hypertension) Surgical History History of colonoscopy with polypectomy (10/22/20) 2009 H/O thumb surgery S/P shoulder surgery Family History Father , 80 Hypertension Hyperlipidemia Mother , 87 CAD (coronary artery disease) Social History Smoking and tobacco/nicotine status: current every day tobacco/nicotine user cigarettes Packs smoked per day: 0.5 Years cigarettes smoked: 51 [ Other cigarette details: started at age 16] Alcohol intake: never Substance/Drug Use: never Marital status: Current occupational status: retired Physical Exam 2 Const: COMMON NORMALS: no acute distress, patient oriented x3 and healthy appearing HENMT: COMMON NORMALS: normocephalic and atraumatic HEAD & SCALP: n ormocephalic and atraumatic Eye: COMMON NORMALS: conjunctivae normal CONJUNCTIVA: Yes conjunctivae normal Neck/C-Spine: COMMON NORMALS: full ROM and supple Chest: COMMONS NORMALS: normal inspection of the chest and normal palpation of entire chest wall Resp: COMMON NORMALS: normal respiratory effort, No retractions, No use of accessory muscles and clear to auscultation bilaterally AUSCULTATION: clear to auscultation bilaterally Cardio: COMMON NORMALS: regular rate, regular rhythm and No murmurs present (Cardio) RATE: regular rate RHYTHM: regular rhythm GI: COMMON NORMALS: Normal to inspection, nondistended, normoactive bowel sounds present, Soft to palpation, non-tender and no masses PALPATION: Yes Soft to palpation Extremity: COMMON NORMALS: normal to inspection and full ROM Neuro: COMMON NORMALS: patient oriented x3, moves all extremities and no focal motor deficits Psych: COMMON NORMALS: mental status grossly normal, Normal thought process present and cooperative THOUGHT PROCESS: Normal thought process present Skin: COMMON NORMALS: no rashes or lesions noted and no wounds GENERAL SKIN EXAM: no rashes or lesions noted Course 2 Vital Signs: Vital signs: Vital Signs Temperature 98.1 F 09/17/24 13:04 Pulse Rate 65 09/17/24 15:40 Respiratory Rate 16 09/17/24 13:04 Blood Pressure 146/72 09/17/24 15:40 Pulse Oximetry 97 09/17/24 15:40 Oxygen Delivery Me thod Room Air 09/17/24 14:08 MDM - Chest Pain Medical Decision Making Patient presents here with chest pains atypical in nature he has been chest pain-free here initial repeat troponins are negative he has no signs of ACS no signs of pulmonary embolism he is follow-up with PCP return if worsening he understands agrees to plan. Medical Records I reviewed the patient's medical records. Lab Data I reviewed the patient's lab results. 09/17/24 13:15 09/17/24 13:15 Radiology Impressions Chest X-Ray 09/17/24 12:57 IMPRESSION: No focal lung consolidation. Laboratory Results WBC 5.48 10^3/uL (3.29-11.43) 09/17/24 13:15 RBC 4.34 10^6/uL (3.85-5.65) 09/17/24 13:15 Hgb 13.40 g/dL (11.27-16.99) 09/17/24 13:15 Hct 40.0 % (37-53) 09/17/24 13:15 MCV 92.2 fl (82-101) 09/17/24 13:15 MCH 30.9 pg (27-33) 09/17/24 13:15 MCHC 33.5 g/dL (30-55) 09/17/24 13:15 RDW 12.8 % (12.1-15.1) 09/17/24 13:15 Plt Count 211 10^3/cmm (157-399) 09/17/24 13:15 MPV 10.7 fL (7.4-10.4) H 09/17/24 13:15 Neut % (Auto) 45.2 % 09/17/24 13:15 Lymph % (Auto) 41.8 % 09/17/24 13:15 [place] % (Auto) 6.8 % 09/17/24 13:15 Eos % (Auto) 5.1 % 09/17/24 13:15 Baso % (Auto) 0.9 % 09/17/24 13:15 Neut # (Auto) 2.48 10^3/uL (1.8-7.7) 09/17/24 13:15 Lymph # (Auto) 2.3 10^3/uL (0.8-4.8) 09/17/24 13:15 [place] # (Auto) 0.4 10^3/uL (0.2-0.9) 09/17/24 13:15 Eos # (Auto) 0.3 10^3/uL (0.0-0.8) 09/17/24 13:15 Baso # (Auto) 0.1 10^3/uL (0.0-0.1) 09/17/24 13:15 Nucleated RBC % (auto) 0 % 09/17/24 13:15 Nucleated RBCs # 0.0 /100WBC 09/17/24 13:15 PT 12.60 SECONDS (12.1-14.9) 09/17/24 13:15 INR 0.88 (0.8-1.2) 09/17/24 13:15 Sodium 138 mmol/L (136-145) 09/17/24 13:15 Potassium 3.8 mmol/L (3.5-5.1) 09/17/24 13:15 Chloride 101 mmol/L (98-107) 09/17/24 13:15 Carbon Dioxide 25 mmol/L (22-29) 09/17/24 13:15 Anion Gap 15.8 (5-19) 09/17/24 13:15 BUN 9 mg/dL (8-23) 09/17/24 13:15 Creatinine 0.7 mg/dL (0.7-1.2) 09/17/24 13:15 GFR Calculation Not Reportable 09/17/24 13:15 Glucose 96 mg/dL (65-115) 09/17/24 13:15 Calculated Osmolality 285 mOsm/kg (285-295) 09/17/24 13:15 Calcium 9.8 mg/dL (8.5-10.5) 09/17/24 13:15 Total Bilirubin 0.2 mg/dL (0.15-1.2) 09/17/24 13:15 AST 13 U/L (0-40) 09/17/24 13:15 ALT 11 U/L (0-41) 09/17/24 13:15 Alkaline Phosphatase 94 U/L (40-130) 09/17/24 13:15 Troponin T Baseline < 6 ng/L (0-15) 09/17/24 13:15 Troponin T 120 Minute 6.69 ng/L (0-15) 09/17/24 15:22 Delta Troponin T 0.20486 ABS# (0-10) 09/17/24 15:22 Total Protein 6.8 g/dL (6.6-8.7) 09/17/24 13:15 Albumin 4.5 g/dL (3.5-5.2) 09/17/24 13:15 Globulin 2.3 g/dL (1.3-4.6) 09/17/24 13:15 Lipase 34 U/L (13-60) 09/17/24 13:15 All radiology interpretation(s) finalized by discharge EKG Data EKG 1: I personally reviewed and interpreted this EKG as follows: EKG interpretation date: 09/17/24 EKG interpretation time: 13:01 Interpretation: nsr hr [address] elevation qrs 88 qtc 389 EKG 2: I personally reviewed and interpreted this EKG as follows: EKG interpretation date: 09/17/24 Interpretation: sinus leny hr [address] elevation qrs 101 qtc 398 Discharge Plan Discharge Condition: Stable Prescriptions: No Action multivitamin Tablet 1 tab PO DAILY tiotropium-olodaterol 2.5-2.5 mcg/actuation mist 2 puff inhalation DAILY Qty: 4 6RF atorvastatin 20 mg Tablet 20 mg PO DAILY lisinopril 20 mg Tablet 20 mg PO DAILY albuterol sulfate 90 mcg/actuation HFA aerosol inhaler 2 inh inhalation Q8H PRN (Reason: shortness of breath or wheezing) Referrals: Araceli Garber FNP [Primary Care Provider] - Coding Level of Care Code ED Production Underwriter for Chg Garrett
[2024-09-17] MEDS: aspirin 81 mg Chew Tablet 324 MG PO (13:15)
[2024-09-17 13:22] LABS: Basophils # 0.1 10^3/uL (0.0-0.1); Basophils % 0.9 %; Eosinophils # 0.3 10^3/uL (0.0-0.8); Eosinophils % 5.1 %; Lymphocytes # 2.3 10^3/uL (0.8-4.8); Lymphocytes % 41.8 %; Mean Corpuscular HGB Conc 33.5 g/dL (30-55); Mean Corpuscular Hemoglobin 30.9 pg (27-33); Mean Corpuscular Volume 92.2 fl (82-101); Mean Platelet Volume 10.7 fL (7.4-10.4); Monocytes # 0.4 10^3/uL (0.2-0.9); Monocytes % 6.8 %; Neutrophils # 2.48 10^3/uL (1.8-7.7); Neutrophils % 45.2 %; Nucleated Red Blood Cells % 0 %; Platelet Count 211 10^3/cmm (157-399); Red Blood Count 4.34 10^6/uL (3.85-5.65); Red Cell Distribution Width 12.8 % (12.1-15.1); White Blood Count 5.48 10^3/uL (3.29-11.43)
[2024-09-17 13:33] LABS: INR 0.88 (0.8-1.2)
[2024-09-17 13:39] LABS: Troponin(5th) Baseline < 6 ng/L (0-15)
[2024-09-17 13:43] LABS: Alanine Aminotransferase 11 U/L (0-41); Albumin Level 4.5 g/dL (3.5-5.2); Alkaline Phosphatase 94 U/L (40-130); Anion Gap 15.8 (5-19); Aspartate Amino Transferase 13 U/L (0-40); Blood Urea Nitrogen 9 mg/dL (8-23); Calcium 9.8 mg/dL (8.5-10.5); Carbon Dioxide 25 mmol/L (22-29); Chloride 101 mmol/L (98-107); Creatinine Clr Calc Pharmacy 0.2132; Globulin 2.3 g/dL (1.3-4.6); Glucose 96 mg/dL (65-115); Lipase 34 U/L (13-60); Osmolality Calculated 285 mOsm/kg (285-295); Potassium 3.8 mmol/L (3.5-5.1); Sodium 138 mmol/L (136-145); Total Bilirubin 0.2 mg/dL (0.15-1.2); Total Protein 6.8 g/dL (6.6-8.7)
[2024-09-17 14:08] VITALS: BP 141/75; PULSE 59; O2SAT 97
--- NOTE | 2024-09-17 15:12 | ECG_ITS ---
[facility]24[facility]17 Pat Name: Lewis Hernandez Department: Room: Gender: Male Brush Cleaner: : 1955 Requested By: Matthew Jensen Order Number: [id number] Reading MD: GREGORIA PAZ Measurements Intervals [place] Rate: 58 P: 31 NE: 170 QRS: 11 QRSD: 101 T: 45 QT: 401 QTc: 396 Interpretive Statements SINUS BRADYCARDIA Compared to ECG 09/17/2024 13:01:07 Sinus rhythm no longer present Electronically Signed On 09-18-2024 23:21:06 HYBRID POWERTRAIN DEVELOPMENT ENGINEER by GREGORIA PAZ [id number]
[2024-09-17 15:40] VITALS: BP 146/72; PULSE 65; O2SAT 97
[2024-09-17 15:46] LABS: Troponin 5 2HR 6.69 ng/L (0-15); Troponin 5 2HR Delta 0.69001 ABS# (0-10)
[2024-09-17 16:01] VITALS: BP 155/78; PULSE 60; O2SAT 98
[2024-09-17 16:57] VITALS: BP 149/71; PULSE 61; RESP 18; O2SAT 97
== END 2024-09-17 16:58 | disposition home or self-care (01) ==
PROVIDERS: Emergency Provider Emergency Medicine; PCP Nurse Practitioner
DX: R07.9 Chest pain, unspecified (principal); F17.210 Nicotine dependence, cigarettes, uncomplicated; Z85.828 Personal history of other malignant neoplasm of skin; I10 Essential (primary) hypertension
CPT/HCPCS: 36415; 71045; 80053; 83690; 84484; 85025; 85610; 93005; 99285

== ENCOUNTER → 2025-01-17 10:52 | Outpatient (BNVA) | payer OTHER, SELFPAY | PROVIDERS: PCP Nurse Practitioner; Visit Provider Nurse Practitioner Family | DX: D22.5 Melanocytic nevi of trunk (principal); L82.1 Other seborrheic keratosis; L57.8 Other skin changes due to chronic exposure to nonionizing radiation; L81.4 Other melanin hyperpigmentation; B35.1 Tinea unguium; Z08 Encounter for follow-up examination after completed treatment for malignant neoplasm; Z85.828 Personal history of other malignant neoplasm of skin | CPT/HCPCS: 99214 ==